=== PATIENT | male | born 1995 | race Two or more races ===

== ENCOUNTER 2017-09-11 10:45 | Emergency (ER) | payer MEDICAID ==
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
[2017-09-11 13:13] VITALS: BP 113/76
== END 2017-09-11 13:11 | disposition home or self-care (01) ==
DX: S20.20XA Contusion of thorax, unspecified, initial encounter (principal); S63.91XA Sprain of unspecified part of right wrist and hand, initial encounter; S53.401A Unspecified sprain of right elbow, initial encounter; Y09 Assault by unspecified means
CPT/HCPCS: L3807